=== PATIENT | male | born 1980 | race Caucasian/White ===

== ENCOUNTER 2018-10-27 07:58 | Emergency (ER) | payer OTHER ==
[2018-10-27 08:10] VITALS: BP 128/73
[2018-10-27] MEDS ORDERED: ALLO100T70 PO (08:16)
[2018-10-27] MEDS ORDERED: RANI-366 PO (08:16)
[2018-10-27] MEDS ORDERED: MAG HYD/AL HYD/SIMETH 30ML UDC PO ONE (08:40)
[2018-10-27] MEDS ORDERED: LIDOCAINE 2% VISC SLN 15ML UDC PO ONE (08:40)
[2018-10-27 09:51] LABS: PLATELET COUNT, AUTOMATED 255 K/uL (150-450)
[2018-10-27] MEDS ORDERED: LIDO15SO2 PO (11:47)
[2018-10-27] MEDS ORDERED: MAG-66 PO (11:47)
[2018-10-27] MEDS ORDERED: PANT40TA65 PO (11:48)
--- NOTE | 2018-10-27 11:49 | ER Report ---
History and Physical Time Seen By MD: 08:10 Hx. of Stated Complaint: N/V with bright blood present, stomach cramps HPI/ROS CHIEF COMPLAINT: vomiting HISTORY OF PRESENT ILLNESS: pt presents with vomiting 3-4 times, occ with streaks of blood. No diarrea; abd pain after meals. Has had previously, on h2 but takes only intermittently; recently moved to area and worse with move. Now constant, epigastric, moderate, non radiating,. + mild nausea. no bloody/black stools. REVIEW OF SYSTEMS: Constitutional: No fever, no chills. Eyes: No discharge. ENT: No sore throat. Cardiovascular: No chest pain, no palpitations. Respiratory: No cough, no shortness of breath. Gastrointestinal: above Genitourinary: no change in urination Musculoskeletal: No back pain. Skin: No rashes. Neurological: No headache. Remainder of the 14 system rev: Yes Allergies: Coded Allergies: morphine (Verified Adverse Reaction, Intermediate, 10/27/18) Chest pain Home Meds Active Scripts Pantoprazole Sodium (PANTOPRAZOLE SODIUM) 40 Mg Tablet.dr, 40 MG PO QDAY for 30 Days, #30 TAB.SR Prov:DARWIN CHANDRA MD 10/27/18 Lidocaine HCl VISCOUS 2% (Lidocaine Viscous) 2 % Solution, 15 ML PO Q8H for PAIN, #90 ML Prov:DARWIN CHANDRA MD 10/27/18 Mag Hydrox/Al Hydrox/Simeth (MAALOX MAXIMUM STRENGTH SUSP) 355 Ml Oral.susp, 355 ML PO 3-4XD for PAIN, #1 BOTTLE Prov:DARWIN CHANDRA MD 10/27/18 Reported Medications Allopurinol (ALLOPURINOL) 100 Mg Tablet, 100 MG PO QDAY, TAB 10/27/18 Ranitidine Hcl (ZANTAC) 150 Mg Tablet, 150 MG PO DAILY, TAB 10/27/18 Reviewed Nurses Notes: Yes Hx Substance Use Disorder: No Hx Alcohol Use: No Constitutional Vital Sign - Last 24 Hours 10/27/18 08:10 Temp 97.8 Pulse 57 Resp 20 B/P (MAP) 128/73 Pulse Ox 91 O2 Delivery Room Air Physical Exam General Appearance: The patient is alert, has no immediate need for airway protection and no signs of toxicity. [ ] Eyes: Pupils equal and round no pallor or injection. ENT, Mouth: Mucous membranes are moist. Respiratory: There are no retractions, lungs are clear to auscultation. Cardiovascular: Regular rate and rhythm. Gastrointestinal: abdomen; no ruq ttp; neg beckwith's; mild epigastric ttp without rebound Neurological: alert, oriented Skin: Warm and dry, no rashes. Musculoskeletal: Extremities are nontender, nonswollen and have full range of motion. [ ] DIFFERENTIAL DIAGNOSIS: After history and physical exam differential diagnosis was considered for abdominal pain including but not limited to appendicitis, cholecystitis, gastritis and urinary tract infection. Medical Decision Making Data Points Result Diagram: 10/27/18 0937 10/27/18 0937 Laboratory Hematology Test 10/27/18 09:37 Red Blood Count 4.85 M/uL (4.00-5.60) Mean Corpuscular Volume 87.4 fL (80.0-96.0) Mean Corpuscular Hemoglobin 29.3 pg (26.0-33.0) Mean Corpuscular Hemoglobin Concent 33.5 g/dL (32.0-36.0) Red Cell Distribution Width 14.1 % (11.5-14.5) Mean Platelet Volume 7.3 fL (7.2-11.1) Neutrophils (%) (Auto) 66.9 % (39.4-72.5) Lymphocytes (%) (Auto) 23.7 % (17.6-49.6) Monocytes (%) (Auto) 5.9 % (4.1-12.4) Eosinophils (%) (Auto) 2.1 % (0.4-6.7) Basophils (%) (Auto) 1.4 % (0.3-1.4) Nucleated RBC Relative Count (auto) 0.1 /100WBC Neutrophils # (Auto) 4.4 K/uL (2.0-7.4) Lymphocytes # (Auto) 1.6 K/uL (1.3-3.6) Monocytes # (Auto) 0.4 K/uL (0.3-1.0) Eosinophils # (Auto) 0.1 K/uL (0.0-0.5) Basophils # (Auto) 0.1 K/uL (0.0-0.1) Nucleated RBC Absolute Count (auto) 0.00 K/uL Sodium Level 139 mmol/L (137-145) Potassium Level 4.6 mmol/L (3.5-5.0) Chloride Level 103 mmol/L (98-107) Carbon Dioxide Level 28 mmol/L (22-30) Blood Urea Nitrogen 11 mg/dl (9-21) Creatinine 1.10 mg/dl (0.66-1.25) Glomerular Filtration Rate Calc > 60.0 Random Glucose 93 mg/dl (75-110) Calcium Level 8.9 mg/dl (8.4-10.2) Total Bilirubin 0.3 mg/dl (0.2-1.3) Aspartate Amino Transf (AST/SGOT) 17 U/L (0-35) Alanine Aminotransferase (ALT/SGPT) 30 U/L (0-56) Alkaline Phosphatase 48 U/L (0-126) Total Protein 6.7 g/dl (6.3-8.2) Albumin 3.9 g/dl (3.5-5.0) Lipase 82 U/L (23-300) Chemistry Test 10/27/18 09:37 White Blood Count 6.6 k/uL (4.5-11.0) Red Blood Count 4.85 M/uL (4.00-5.60) Hemoglobin 14.2 g/dL (14.0-18.0) Hematocrit 42.4 % (42.0-52.0) Mean Corpuscular Volume 87.4 fL (80.0-96.0) Mean Corpuscular Hemoglobin 29.3 pg (26.0-33.0) Mean Corpuscular Hemoglobin Concent 33.5 g/dL (32.0-36.0) Red Cell Distribution Width 14.1 % (11.5-14.5) Platelet Count 255 K/uL (150-450) Mean Platelet Volume 7.3 fL (7.2-11.1) Neutrophils (%) (Auto) 66.9 % (39.4-72.5) Lymphocytes (%) (Auto) 23.7 % (17.6-49.6) Monocytes (%) (Auto) 5.9 % (4.1-12.4) Eosinophils (%) (Auto) 2.1 % (0.4-6.7) Basophils (%) (Auto) 1.4 % (0.3-1.4) Nucleated RBC Relative Count (auto) 0.1 /100WBC Neutrophils # (Auto) 4.4 K/uL (2.0-7.4) Lymphocytes # (Auto) 1.6 K/uL (1.3-3.6) Monocytes # (Auto) 0.4 K/uL (0.3-1.0) Eosinophils # (Auto) 0.1 K/uL (0.0-0.5) Basophils # (Auto) 0.1 K/uL (0.0-0.1) Nucleated RBC Absolute Count (auto) 0.00 K/uL Glomerular Filtration Rate Calc > 60.0 Calcium Level 8.9 mg/dl (8.4-10.2) Total Bilirubin 0.3 mg/dl (0.2-1.3) Aspartate Amino Transf (AST/SGOT) 17 U/L (0-35) Alanine Aminotransferase (ALT/SGPT) 30 U/L (0-56) Alkaline Phosphatase 48 U/L (0-126) Total Protein 6.7 g/dl (6.3-8.2) Albumin 3.9 g/dl (3.5-5.0) Lipase 82 U/L (23-300) ED Course/Re-evaluation ED Course Pt presents with intermittent vomiting; epigastric pain, worse with recent move here and poor diet on road. Benign abdomen and completely resolves after meds. Most c/w gastritis v early PUD. Pt comfortable in ED; will d/c with addition of ppi, continue h2, and maalox as needed .Pt very agreeable to this; no acute abdomen. Decision to Disposition Date: Oct 27, 2018 Decision to Disposition Time: 11:50 Depart Departure Latest Vital Signs Vital Signs Date Time Temp Pulse Resp B/P (MAP) Pulse Ox O2 Delivery O2 Flow Rate FiO2 10/27/18 08:10 97.8 57 20 128/73 91 Room Air Impression: Primary Impression: Abdominal pain Condition: Improved Disposition: HOME OR SELF-CARE Referrals: [facility] 5 Days New Scripts Pantoprazole Sodium (PANTOPRAZOLE SODIUM) 40 Mg Tablet. 40 MG PO QDAY for 30 Days, #30 TAB.SR Prov: DARWIN CHANDRA MD 10/27/18 Lidocaine HCl VISCOUS 2% (Lidocaine Viscous) 2 % Solution 15 ML PO Q8H for PAIN, #90 ML Prov: DARWIN CHANDRA MD 10/27/18 Mag Hydrox/Al Hydrox/Simeth (MAALOX MAXIMUM STRENGTH SUSP) 355 Ml Oral.susp 355 ML PO 3-4XD for PAIN, #1 BOTTLE Prov: DARWIN CHANDRA MD 10/27/18 Patient Instructions: Abdominal Pain (ED), Gastritis (ED) Additional Instructions: Establish primary care and follow up with a primary doctor for further evaluation and to determine the need to rule out peptic ulcer disease or for need for repeat endoscopy. Please return for worsening symptoms or any concerns. Problem Qualifiers Primary Impression: Abdominal pain Abdominal location: epigastric Qualified Codes: R10.13 - Epigastric pain DARWIN CHANDRA MD Oct 27, 2018 11:49
== END 2018-10-27 11:59 | disposition home or self-care (01) ==
LOC: ER 08:36
DX: R10.13 Epigastric pain (principal)
CPT/HCPCS: 36415; 82040; 82247; 82310; 82374; 82435; 82565; 82947; 83690; 84075; 84132; 84155; 84295; 84450; 84460; 84520; 85025; 99283

== ENCOUNTER 2018-11-20 15:54 | Outpatient (RCR) | payer OTHER ==
[~2018-11-20 15:54] MED LIST: ALLO100T70 PO; LIDO15SO2 PO; MAG-66 PO; PANT40TA65 PO; RANI-366 PO
[2018-11-20] MEDS ORDERED: DEXTROSE 5%(*) 100 ML BAG 100 ML IVPB PRN (16:20)
[2018-11-20] MEDS ORDERED: LIDOCAINE/SOD BICARB 8.4% SYR ID PRN (16:20)
[2018-11-21] MEDS: NS(*) 0.9% 100 ML BAG 100 ML IVPB PRN (09:19)
[2018-11-21] MEDS: methylPREDNIS SUC* 1000 MG/8ML 1,000 MG in NS(*) 0.9% 250 ML BAG 250 ML IV PRN (09:19)
[2018-11-21 09:28] VITALS: BP 145/92
[2018-11-22] MEDS: methylPREDNIS SUC* 1000 MG/8ML 1,000 MG in NS(*) 0.9% 250 ML BAG 250 ML IV PRN (09:17)
[2018-11-22] MEDS: NS(*) 0.9% 100 ML BAG 100 ML IVPB PRN (09:18)
[2018-11-22 09:19] VITALS: BP 158/89
== END 2018-12-28 08:08 | disposition home or self-care (01) ==
LOC: SPU 15:54
PROVIDERS: ATTEND Psychiatry & Neurology Neurology
DX: H46.9 Unspecified optic neuritis (principal)
CPT/HCPCS: 96365; J2930; J7050

== ENCOUNTER → 2018-11-26 | Outpatient (CLI) | payer OTHER ==
[~2018-11-26] MED LIST changes: +GADOBENATE 529MG/1ML 15ML VIAL IVP ONE
--- NOTE | 2018-11-26 13:22 | RADIOLOGY IMAGING REPORT ---
FACILITY: [facility] - [place] PATIENT NAME: Sabino Man : 1980 MR: [id number] V: [id number] EXAM DATE: ORDERING PHYSICIAN: MAX TURNER TECHNOLOGIST: Location: [facility] [place] Patient: Sabino Man : 1980 Visit/Account:[id number] Date of Sevice: 11/26/2018 Examination: MR brain without and with contrast History: Sudden vision loss Comparison: None Technique: Multiplane MR imaging was performed through the brain without and with contrast. 15 cc IV multihance was administered. Findings: Diffusion: None Ventricles: Normal Midline shift: None Extraxial fluid: None Midline craniocervical structures: Normal Parenchyma: Punctate left frontal juxtacortical white matter high signal focus, axial FLAIR image 13. Enhancement: No pathologic enhancement Vascular flow voids: Normal Orbits and paranasal sinuses: Normal Other: No significant additional finding. Impression: 1. No acute intracranial abnormality. 2. Solitary nonspecific left frontal juxtacortical white matter high signal focus which may reflect the residua of prior microischemia or inflammation. Such findings can be seen in setting of migraine disorders as well. This is of doubtful clinical significance. 3. Otherwise unremarkable brain MR without and with contrast. Report Dictated By: Bay Hassan MD at 11/26/2018 1:11 PM Report E-Signed By: Bay Hassan MD at 11/26/2018 1:17 PM WSN:[id number]
== END ==
LOC: MRI 01:25
PROVIDERS: ATTEND Psychiatry & Neurology Neurology
DX: H53.133 Sudden visual loss, bilateral (principal)
CPT/HCPCS: 70553; A9577